=== PATIENT | male | born 1975 | race American Indian/Alaskan Native ===

== ENCOUNTER 2019-06-16 07:34 | Emergency (ER) | payer SELFPAY ==
[2019-06-16] MEDS ORDERED: dexAMETHasone 4 MG/ML VIAL PO ONE (08:20)
[2019-06-16] MEDS ORDERED: PENICILLIN G BENZATHINE 1.2 MILLION UNIT/2 ML INJ IM STA (08:20)
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
[2019-06-16 09:43] VITALS: BP 122/82
== END 2019-06-16 09:43 | disposition home or self-care (01) ==
LOC: ED 07:34
DX: J02.9 Acute pharyngitis, unspecified (principal); Z79.899 Other long term (current) drug therapy
CPT/HCPCS: 96372; 99282; J0561; J1100

== ENCOUNTER 2019-11-02 05:38 | Emergency (ER) | payer SELFPAY ==
[2019-11-02 06:01] VITALS: BP 131/81
[2019-11-02] MEDS ORDERED: IBUPROFEN 800 MG TAB PO ONE (08:04)
[2019-11-02] MEDS ORDERED: LIDOCAINE VISCOUS 2% 15 ML ORAL LIQD MM ONE (08:04)
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
== END 2019-11-02 08:35 | disposition home or self-care (01) ==
LOC: ED 05:38
DX: J03.80 Acute tonsillitis due to other specified organisms (principal); Z79.1 Long term (current) use of non-steroidal anti-inflammatories (NSAID); Z79.2 Long term (current) use of antibiotics; Z79.899 Other long term (current) drug therapy
CPT/HCPCS: 99282

== ENCOUNTER 2020-05-10 19:22 | Emergency (ER) | payer SELFPAY ==
[2020-05-10] MEDS ORDERED: ASPIRIN 325 MG TAB PO ONE (21:44)
[2020-05-10 22:27] LABS: Basophils # (Auto) 0.1 K/mm3 (0.0-0.1); Basophils % (Auto) 0.7 % (0.0-1.8); Eosinophils # (Auto) 0.1 K/mm3 (0.0-0.4); Eosinophils % (Auto) 1.3 % (0.0-4.3); Hematocrit 39.6 % (35.5-45.6); Hemoglobin 13.1 gm/dl (11.8-15.2); Lymphocytes % (Auto) 20.7 % (13.4-35.0); Mean Corpuscular HGB Conc 33 % (32-34); Mean Corpuscular Volume 81 fl (84-94); Monocytes % (Auto) 10.2 % (0.0-7.3); Platelet Count 281 K/mm3 (140-440); Red Blood Count 4.91 M/mm3 (3.65-5.03); Red Cell Distribution Width 15.6 % (13.2-15.2)
--- NOTE | 2020-05-10 22:37 | XRay Report ---
CHEST 1 VIEW INDICATION / CLINICAL INFORMATION: Chest Pain. COMPARISON: None available. FINDINGS: SUPPORT DEVICES: None. HEART / MEDIASTINUM: No significant abnormality. LUNGS / PLEURA: No significant pulmonary or pleural abnormality. No pneumothorax. ADDITIONAL FINDINGS: No significant additional findings. IMPRESSION: 1. No acute findings. Signer Name: Parvin Solis MD Signed: 05/10/2020 10:32 PM Workstation Name: [id number]
[2020-05-10 22:45] LABS: BUN/Creatinine Ratio 10; Blood Urea Nitrogen 9 mg/dL (9-20); Calcium 9.4 mg/dL (8.4-10.2); Hemolysis Index 7
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
[2020-05-11] MEDS ORDERED: ASPIRIN 325 MG TAB ONE (00:17)
[2020-05-11 04:49] VITALS: BP 155/72
== END 2020-05-11 04:49 | disposition home or self-care (01) ==
LOC: ED 19:22
DX: R07.89 Other chest pain (principal); F17.200 Nicotine dependence, unspecified, uncomplicated; Z98.890 Other specified postprocedural states; Z79.899 Other long term (current) drug therapy
CPT/HCPCS: 36415; 71045; 80048; 84484; 85025; 93005

== ENCOUNTER 2020-11-02 20:15 | Emergency (ER) | payer SELFPAY ==
[2020-11-02 20:24] VITALS: BP 150/76
== END 2020-11-02 21:20 | disposition left against medical advice (07) ==
LOC: ED 20:15
DX: R07.9 Chest pain, unspecified (principal); Z53.21 Procedure and treatment not carried out due to patient leaving prior to being seen by health care provider
CPT/HCPCS: 93005

== ENCOUNTER 2020-11-03 00:45 | Emergency (ER) | payer SELFPAY | END 2020-11-03 01:00 | disposition left against medical advice (07) | LOC: ED 00:45 | DX: Z53.21 Procedure and treatment not carried out due to patient leaving prior to being seen by health care provider (principal) ==

== ENCOUNTER → 2021-07-29 | Emergency (ER) | payer SELFPAY ==
[2021-07-29 06:21] VITALS: BP 160/90
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
[2021-07-29 11:04] LABS: Basophils % (Auto) 0.7 % (0.0-1.8); Eosinophils # (Auto) 0.1 K/mm3 (0.0-0.4); Eosinophils % (Auto) 0.8 % (0.0-4.3); Hematocrit 44.8 % (35.5-45.6); Hemoglobin 14.4 gm/dl (11.8-15.2); Lymphocytes # (Auto) 1.3 K/mm3 (1.2-5.4); Lymphocytes % (Auto) 17.9 % (13.4-35.0); Mean Corpuscular HGB Conc 32 % (32-34); Mean Corpuscular Volume 82 fl (84-94); Monocytes # (Auto) 0.7 K/mm3 (0.0-0.8); Monocytes % (Auto) 9.3 % (0.0-7.3); Platelet Count 385 K/mm3 (140-440); Red Blood Count 5.47 M/mm3 (3.65-5.03); Red Cell Distribution Width 15.3 % (13.2-15.2)
[2021-07-29 11:13] LABS: INR 0.93 (0.87-1.13)
[2021-07-29 11:14] LABS: Partial Thromboplastin Time 31.1 Sec. (24.2-36.6)
[2021-07-29 11:27] LABS: Alanine Aminotransferase 27 units/L (7-56); Albumin 4.7 g/dL (3.9-5); BUN/Creatinine Ratio 18; Blood Urea Nitrogen 14 mg/dL (9-20); Calcium 10.1 mg/dL (8.4-10.2); Hemolysis Index 11
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
--- NOTE | 2021-07-29 13:15 | XRay Report ---
CHEST 2 VIEWS INDICATION: CP. COMPARISON: 05/10/2020 FINDINGS: SUPPORT DEVICES: None. HEART: Within normal limits. LUNGS/PLEURA: No acute air space or interstitial disease. No pneumothorax. ADDITIONAL FINDINGS: None. IMPRESSION: 1. No acute findings. Signer Name: Oscar Calderon MD Signed: 07/29/2021 1:11 PM Workstation Name: [id number]
== END | disposition left against medical advice (07) ==
LOC: ED 06:17
DX: R07.9 Chest pain, unspecified (principal); I10 Essential (primary) hypertension; F17.200 Nicotine dependence, unspecified, uncomplicated
CPT/HCPCS: 36415; 71046; 80053; 80320; 84484; 85025; 85610; 85730; 99285; G0480

== ENCOUNTER 2022-01-05 10:18 | Emergency (ER) | payer SELFPAY ==
[2022-01-05] MEDS ORDERED: NITROGLYCERIN 2% OINT 1 GM TP ONE (11:03)
[2022-01-05] MEDS ORDERED: ASPIRIN 325 MG TAB PO ONE (11:03)
--- NOTE | 2022-01-05 11:31 | XRay Report ---
CHEST 2 VIEWS INDICATION / CLINICAL INFORMATION: Chest Pain. COMPARISON: 07/29/2021 FINDINGS: SUPPORT DEVICES: None. HEART / MEDIASTINUM: No significant abnormality. LUNGS / PLEURA: Streaky right middle lobe opacity. ADDITIONAL FINDINGS: No significant additional findings. IMPRESSION: 1. Streaky right middle lobe opacity, possible developing pneumonia. Signer Name: Godfrey Dai MD Signed: 01/05/2022 11:24 AM Workstation Name: [id number]
[2022-01-05 11:43] LABS: Basophils # (Auto) 0.1 K/mm3 (0.0-0.1); Basophils % (Auto) 0.7 % (0.0-1.8); Eosinophils % (Auto) 0.3 % (0.0-4.3); Hematocrit 41.7 % (35.5-45.6); Hemoglobin 13.6 gm/dl (11.8-15.2); Lymphocytes # (Auto) 1.2 K/mm3 (1.2-5.4); Lymphocytes % (Auto) 9.5 % (13.4-35.0); Mean Corpuscular HGB Conc 33 % (32-34); Mean Corpuscular Volume 80 fl (84-94); Monocytes # (Auto) 0.8 K/mm3 (0.0-0.8); Platelet Count 217 K/mm3 (140-440); Red Blood Count 5.23 M/mm3 (3.65-5.03); Red Cell Distribution Width 15.1 % (13.2-15.2)
[2022-01-05 12:00] LABS: Alanine Aminotransferase 31 units/L (7-56); Albumin 3.8 g/dL (3.9-5); BUN/Creatinine Ratio 24; Blood Urea Nitrogen 26 mg/dL (9-20); Calcium 9.3 mg/dL (8.4-10.2); Hemolysis Index 11
[2022-01-05 12:31] LABS: INR > 17.67 (0.87-1.13)
[2022-01-05 13:38] LABS: INR 0.91 (0.87-1.13)
[2022-01-05] MEDS ORDERED: LORazepam 1 MG TAB PO ONE (14:04)
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
[2022-01-05 14:25] VITALS: BP 124/64
--- NOTE | 2022-01-06 12:11 | Electrocardiograph Report ---
[facility] Test Date: 2022-01-05 Test Time: 10:46:00 Pat Name: EDDY NICHOLAS Department: Room: Gender: M [employer]: LIS : 1975 Requested By: ASHLEY MAHER Order Number: [id number] Reading MD: Khris Daniels Measurements Intervals [place] Rate: 86 P: 63 MS: 161 QRS: 39 QRSD: 90 T: 60 QT: 391 QTc: 469 Interpretive Statements Sinus rhythm ST elev, probable normal early repol pattern Compared to ECG 11/02/2020 20:19:13 ST (T wave) deviation now present Electronically Signed On 01-06-2022 12:10:37 EDT by Khris Daniels
== END 2022-01-05 14:24 | disposition home or self-care (01) ==
LOC: ED 10:18
DX: R07.9 Chest pain, unspecified (principal)
CPT/HCPCS: 36415; 71046; 80053; 83690; 84484; 85025; 85610; 93005; 99284